=== PATIENT | female | born 1980 | race Caucasian/White ===

== ENCOUNTER 2017-07-28 16:18 | Emergency (ER) | payer OTHER ==
[~2017-07-28] VITALS: Ht 175.3 cm; Wt 61.7 kg
[2017-07-28 16:25] VITALS: BP 149/85
--- NOTE | 2017-07-28 16:48 | PHYS DOC ---
General Chief Complaint: BACK PAIN OR INJURY Stated Complaint: BACK PAIN Time Seen by MD: 16:31 Source: patient Exam Limitations: no limitations Problems: History of Present Illness Initial Comments Patient is a 37-year-old female who comes to the ED complaining of low back pain. Patient states that she is a and must follow-up with [facility] per her PCM. She says she moved here from [place] 2 days ago and says a new medical provider has not been assigned. Patient states she's had insidious onset atraumatic severe low back pain for the past 2.5 months with radiation down her legs. She points to her low back across the lumbosacral junction describes it as sharp and stabbing with burning radiation down posterior both legs to the knees. She confirms no leg weakness no saddle anesthesia and no bowel or bladder symptoms. She was seen by her PCM at [place] last Saturday and prescribed hydrocodone, prednisone, gabapentin. She says these medications have not resolved her symptoms and wants me to increase dosing of her chronic pain medications. She also states that she was recommended to have an MRI study but that no MRI was ordered. She has come to this department requesting an MRI. Through further questioning she states that her PCM at [place] had no intention of ordering an MRI in the near future as physical therapy and other initial modalities must be failed before MRI would be approved. She denies any new trauma or strenuous activity she denies any new or progressive symptoms regarding her 2.5 month back symptoms. ED vital signs: 98, 90, 16, 149/85, 97% room air Timing/Duration: constant (2-1/2 months) Severity: severe Modifying Factors: improves with medication, worse with movement, improves with rest Associated Symptoms: other Past Medical History Medical History: no pertinent history Surgical History: noncontributory Social History Smoker: cigarettes Alcohol: none Drugs: none Review of Systems Constitutional: denies chills, denies diaphoresis, denies fever, denies malaise Respiratory: denies cough, denies shortness of breath, denies wheezing Cardiovascular: denies chest pain, denies palpitations, denies syncope Gastrointestinal: denies abdominal pain, denies constipation, denies diarrhea, denies nausea, denies vomiting Genitourinary: denies discharge, denies dysuria, denies frequency, denies hematuria Musculoskeletal: see HPI Psychiatric/Neurological: see HPI Physical Exam General Appearance: WD/WN, no apparent distress Ear, Nose, Throat: hearing grossly normal, normal ENT inspection, normal pharynx Neck: non-tender, supple Respiratory: normal breath sounds, no respiratory distress Cardiovascular: normal peripheral pulses, regular rate, rhythm Gastrointestinal: non tender, soft Back: no CVA tenderness, no vertebral tenderness Extremities: non-tender, normal inspection Neurologic/Psychiatric: 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 I advised the patient that she was likely bound to her agreement with and would likely have to follow up with a PCM here locally. Her other option is to follow-up at a walk-in clinic as an outpatient and pay out of pocket but that would not guarantee an MRI would be ordered. Additionally the patient realizes that if such MRI or stage setting painter apprentice were ordered by a walk-in clinic that it would likely not be covered by her benefits and she would likely be forced to pay for it out of pocket. As I spelled this out to her she did come to the realization that her options were to follow-up with a provider as she states she does not have the funds to pay out of pocket for these expensive tests and referrals. She expressed disappointment but also understanding that I was unable to do more for her. Signs and symptoms to monitor for as well as indications for urgent return to the department were discussed and her questions were answered to her satisfaction. She was advised to stop smoking she expressed agreement and understanding with the treatment plan. Departure Time of Disposition: 16:43 Disposition: 01 HOME, SELF-CARE Diagnosis: chronic back pain, sciatica symptoms Condition: STABLE Patient Instructions: Chronic Back Pain, Sciatica, [id number] Additional Instructions: As discussed, your pain medications are appropriate. Additionally as discussed you understand that we are unable to order MRI evaluations for back pain. As a patient unless you want to pay out of pocket at a walk-in clinic you'll need to follow-up with a new PCM here locally arranged through [facility]. Further, as we discussed if you did see a local walk-in clinic physician it is likely that [facility] would not pay for outpatient MRI or a pain management referral unless the referral came through your PCM. Contact your [facility] sales representative aircraft to try to expedite assignment of a new PCM so your chronic back pain complaints can be further evaluated and appropriate treatment administered as necessary. Heating pad to affected area 4-6 times daily followed by gentle stretching. Continue current medications. Return to ED with new or changing symptoms. MEHDI ALVARES DO Jul 28, 2017 16:48
== END 2017-07-28 16:57 | disposition home or self-care (01) ==
LOC: ER 16:18
DX: G89.29 Other chronic pain (principal); M54.5 Low back pain; F17.210 Nicotine dependence, cigarettes, uncomplicated
CPT/HCPCS: 99281